=== PATIENT | female | born 2000 | race Caucasian/White ===

== ENCOUNTER 2019-04-22 12:53 | Emergency (ER) | payer BC ==
[2019-04-22 12:57] VITALS: BP 118/73; PULSE 90; RESP 18; TEMP 98.3
[2019-04-22] MEDS ORDERED: PENICILLIN G BENZATHINE 1,200,000 UNIT/2 ML SYRINGE IM STA (13:14)
--- NOTE | 2019-04-22 13:17 | ED ---
ENT HPI - General Chief complaint: ENT Stated complaint: SORE THROAT Time Seen by Provider: 04/22/19 13:01 Source: family, RN notes reviewed, old records reviewed Mode of arrival: ambulatory Limitations: no limitations - History of Present Illness Initial comments: Patient is a 19-year-old female Patient started with one week of sore throat. Patient reports that she's had symptoms since last Wednesday. She went to her primary care doctor's on Wednesday shaking and again negative rapid strep and negative mono test at that time. Was sent for home for monitoring. Patient states that today the pain got worse in her throat that she left work early went to [facility]. They sent her here for concerns for possible early peritonsillar abscess. Patient states that she had a fever last week but nothing at this time. She does report that she had a positive rapid strep test at [facility]. - Related Data Home Medications Medication Instructions Recorded Confirmed Ibuprofen [Motrin Ib] 400 mg PO Q6H PRN 04/22/19 04/22/19 Previous Rx's Medication Instructions Recorded Amoxicillin 500 mg PO Q8H #30 capsule 04/22/19 Allergies Allergy/AdvReac Type Severity Reaction Status Date / Time No Known Allergies Allergy Verified 04/22/19 13:05 Review of Systems ROS Statement: Those systems with pertinent positive or pertinent negative responses have been documented in the HPI. ROS Other: All systems not noted in ROS Statement are negative. Past Medical History Past Medical History: No Reported History History of Any Multi-Drug Resistant Organisms: None Reported Additional Past Surgical History / Comment(s): dental implant Past Psychological History: No Psychological Hx Reported Smoking Status: Never smoker Past Alcohol Use History: Occasional Past Drug Use History: None Reported General Exam - General Exam Comments Initial Comments: This is a 19-year-old female. Alert and oriented. No distress. Limitations: no limitations General appearance: alert Head exam: Present: atraumatic, normocephalic, normal inspection Eye exam: Present: normal appearance, PERRL, EOMI. Absent: scleral icterus, conjunctival injection, periorbital swelling ENT exam: Present: normal exam, mucous membranes moist. Absent: normal oropharynx (Erythematous oropharynx. No evidence of peritonsillar abscess. Patient is able to open and close jaw completely.) Neck exam: Present: normal inspection. Absent: tenderness, meningismus, lymphadenopathy Respiratory exam: Present: normal lung sounds bilaterally. Absent: respiratory distress, wheezes, rales, rhonchi, stridor Cardiovascular Exam: Present: regular rate, normal rhythm, normal heart sounds. Absent: systolic murmur, diastolic murmur, rubs, gallop, clicks GI/Abdominal exam: Present: soft Extremities exam: Present: normal inspection, full ROM, normal capillary refill. Absent: tenderness, pedal edema, joint swelling, calf tenderness Back exam: Present: normal inspection Neurological exam: Present: alert, oriented X3, CN II-XII intact Psychiatric exam: Present: normal affect, normal mood Skin exam: Present: warm, dry, intact, normal color. Absent: rash Course Vital Signs 04/22/19 12:54 Temperature 98.3 F Pulse Rate 90 Respiratory 18 Rate Blood Pressure 118/73 O2 Sat by Pulse 99 Oximetry Medical Decision Making - Medical Decision Making 19-year-old female presents today with 1 week of sore throat. She was sent from [facility] after positive rapid strep test. She was sent for concern for peritonsillar abscess. This time patient's vital signs are stable. On physical exam shows an erythematous oropharynx. No evidence of peritonsillar abscess. She is a difficulty swallowing or opening her jaw. Patient at this time has been given 1 dose IM Penicillin G. Discussed doing salt water rinses and close follow-up with her primary care physician. Discussed strict return parameters and monitoring for what would be concern for peritonsillar abscess. Patient agrees treatment plan will comply. Return parameters were discussed.. Disposition Clinical Impression: Strep pharyngitis Disposition: HOME SELF-CARE Condition: Good Instructions (If sedation given, give patient instructions): Strep Throat (ED) Additional Instructions: Follow-up with primary care physician in the next week. Patient should take antibiotics as prescribed. Return to emergency department if any alarming signs or symptoms occur. Prescriptions: Amoxicillin 500 mg PO Q8H #30 capsule Is patient prescribed a controlled substance at d/c from ED?: No Referrals: Nik Dash III, MD [Primary Care Provider] - 1-2 days Time of Disposition: 13:16
== END 2019-04-22 13:44 | disposition home or self-care (01) ==
LOC: EC 12:53
DX: J02.0 Streptococcal pharyngitis (principal); Z96.5 Presence of tooth-root and mandibular implants
CPT/HCPCS: 99283; 96372; J0561

== ENCOUNTER 2019-04-24 10:15 | Emergency (ER) | payer BC ==
[2019-04-24 10:35] VITALS: RESP 18
[2019-04-24] MEDS ORDERED: SODIUM CHLORIDE 0.9% 1,000 ML IV ONE (11:33)
[2019-04-24] MEDS ORDERED: SODIUM CHLORIDE 0.9% 500 ML 500 ML IV ONE (11:33)
[2019-04-24] MEDS ORDERED: DEXAMETHASONE SOD PHOSPHATE 10 MG/ML 1 ML VIAL IV STA (11:33)
[2019-04-24] MEDS ORDERED: KETOROLAC 30 MG/ML 1 ML VIAL IVP STA (11:33)
[2019-04-24] MEDS ORDERED: PENICILLIN G BENZATHINE 1,200,000 UNIT/2 ML SYRINGE IM STA (11:41)
--- NOTE | 2019-04-24 11:44 | ED ---
ENT HPI - General Chief complaint: ENT Stated complaint: strep throat Time Seen by Provider: 04/24/19 10:47 Source: patient, family Mode of arrival: ambulatory Limitations: no limitations - History of Present Illness Initial comments: 19-year-old female patient presents to the emergency department today for evaluation of sore throat, throat swelling, and painful swallowing. Patient states she was diagnosed with strep pharyngitis on 04/22/2019. Patient states that she did receive an IM dose of penicillin and was started on amoxicillin. Patient states she has been taking her antibiotics as directed but her symptoms seem to be worsening. Patient states she has had fevers. He states that her throat feels more swollen now and she is having a very difficult time swallowing. States that she has had decreased food and fluid intake related to this. States that she has been taking children's Tylenol and Motrin as needed for discomfort. She denies any other medical conditions. Denies cough, nasal congestion, or ear pain. Patient denies any recent rash, shortness breath, chest pain, abdominal pain, nausea, vomiting, diarrhea, constipation, back pain, numbness, tingling, dizziness, weakness, hematuria, dysuria, urinary urgency, urinary frequency, headache, visual changes, or any other complaints. - Related Data Home Medications Medication Instructions Recorded Confirmed Acetaminophen [Children's Tylenol] 480 mg PO Q6H PRN 04/24/19 04/24/19 Ibuprofen [Children's Motrin] 600 mg PO Q6H PRN 04/24/19 04/24/19 Previous Rx's Medication Instructions Recorded Amoxicillin 500 mg PO Q8H #30 capsule 04/22/19 Allergies Allergy/AdvReac Type Severity Reaction Status Date / Time No Known Allergies Allergy Verified 04/24/19 10:42 Review of Systems ROS Statement: Those systems with pertinent positive or pertinent negative responses have been documented in the HPI. ROS Other: All systems not noted in ROS Statement are negative. Past Medical History Past Medical History: No Reported History History of Any Multi-Drug Resistant Organisms: None Reported Additional Past Surgical History / Comment(s): dental implant Past Psychological History: No Psychological Hx Reported Smoking Status: Never smoker Past Alcohol Use History: Occasional Past Drug Use History: None Reported General Exam Limitations: no limitations General appearance: alert, in no apparent distress, other (Physical well- developed, well-nourished adult female patient in mild distress related to pain. Vital signs upon presentation are temperature 98.8F, pulse 1:30, respirations 18, blood pressure 127/80, pulse ox 100% on room air.) Eye exam: Present: normal appearance, PERRL, EOMI. Absent: scleral icterus, con junctival injection, periorbital swelling ENT exam: Present: mucous membranes moist. Absent: normal exam, normal oropharynx (Pharyngeal erythema, bilateral tonsillar hypertrophy, tonsillar exudate bilaterally. Tonsils are symmetrically enlarged.) Neck exam: Present: normal inspection, lymphadenopathy (Anterior cervical). Absent: tenderness, meningismus Respiratory exam: Present: normal lung sounds bilaterally. Absent: respiratory distress, wheezes, rales, rhonchi, stridor Cardiovascular Exam: Present: regular rate, normal rhythm, normal heart sounds. Absent: systolic murmur, diastolic murmur, rubs, gallop, clicks GI/Abdominal exam: Present: soft, normal bowel sounds. Absent: distended, tenderness, guarding, rebound, rigid Neurological exam: Present: alert, oriented X3, CN II-XII intact Psychiatric exam: Present: normal affect, normal mood Skin exam: Present: warm, dry, intact, normal color. Absent: rash Course Vital Signs 04/24/19 04/24/19 10:28 14:00 Temperature 98.8 F 99 F Pulse Rate 130 H 80 Respiratory 18 18 Rate Blood Pressure 127/80 110/71 O2 Sat by Pulse 100 99 Oximetry Medical Decision Making - Medical Decision Making 19-year-old female patient presented to the emergency department today for evaluation of throat swelling, pain, and difficulty swallowing. Physical examination did reveal a lateral tonsillar hypertrophy, erythema, and exudate. She is afebrile currently. Breathing without difficulty. She was given IV fluids, IV Decadron and Toradol. She is given additional dose of penicillin. Upon reevaluation she does report improvement of symptoms. She is clearly taking amoxicillin, she is urged to continue taking this. She is instructed to continue ibuprofen every 6-8 hours as needed for discomfort and swelling. She is instructed to follow-up with her primary care physician for recheck in 1-2 days. Return parameters discussed in detail. She verbalizes understanding and agrees with this plan. Disposition Clinical Impression: Strep throat Disposition: HOME SELF-CARE Condition: Good Instructions (If sedation given, give patient instructions): Strep Throat (ED) Additional Instructions: Continue ibuprofen for pain control. Complete antibiotic prescription as directed. Increase fluids. Follow-up with your primary care physician for recheck in 1-2 days. Return to the emergency department immediately for any new, worsening, or concerning symptoms. Is patient prescribed a controlled substance at d/c from ED?: No Referrals: Nik Dash III, MD [Primary Care Provider] - 1-2 days Time of Disposition: 13:52
[2019-04-24 14:06] VITALS: BP 110/71; PULSE 80; TEMP 99
== END 2019-04-24 14:00 | disposition home or self-care (01) ==
LOC: EC 10:15
DX: J02.0 Streptococcal pharyngitis (principal)
CPT/HCPCS: 99282; 96374; 96375; 96361 ×2; 96372; J0561; J1100; J1885

== ENCOUNTER → 2021-06-09 | Outpatient (CLI) | payer BC ==
--- NOTE | 2021-06-09 21:53 | CT ---
EXAMINATION TYPE: CT soft tissue neck w con DATE OF EXAM: 06/09/2021 COMPARISON: None HISTORY: Localized enlarged lymph nodes CT DLP: 275.2 mGycm CONTRAST: Patient injected with 100 mL of Isovue 300. TECHNIQUE: Axial images at 3 mm thick sections. Reconstructed images in the coronal plane and sagitt al plane are reviewed. FINDINGS: Limited CT sections are obtained the lung apices. The lung apices appear clear. May be a r ight suprahilar lymph node measuring 1.[address] chest for additional evaluation. Series [address] neck: The torus tubarius and fossa of Rosenmuller are normal. Charger spaces are normal. Para nasal sinuses and mastoid air cells are clear. Prevertebral space appears unremarkable. Parotid glands appear normal and symmetrical. Submandibular glands, are normal. Parapharyngeal spac es are normal. No suspicious adenopathy is evident. Submental spaces a few small lymph nodes. No enl arged lymphadenopathy is evident. The hypopharynx appears within normal limits. Vocal cord level appear symmetrical. Multiple small hypodensities are scattered within the thyroid may be tiny cysts. This could be evalua chari with ultrasound. Osseous structures are normal. Disc heights are preserved At the level marked by the BB on the right neck no suspicious underlying mass is evident. This is mar ked at the level of the right submandibular gland which appears symmetrical with the contralateral si de. IMPRESSIONS: 1. No suspicious abnormality at the level marked by the BB. 2. At the lower edge of the film superior mediastinal and may be a 1 cm lymph node at the right supra hilar region. CT chest could be performed for additional evaluation. No additional suspicious adenopa thy is evident.
== END | disposition home or self-care (01) ==
LOC: RADCTMAIN 07:53
PROVIDERS: ATTEND Family Medicine
DX: R59.0 Localized enlarged lymph nodes (principal)
CPT/HCPCS: 70491; Q9967

== ENCOUNTER 2024-11-30 18:52 | Outpatient (CLI) | payer BC ==
[2024-11-30] MEDS: ACETAMINOPHEN TAB 500 MG TAB PO STA (19:29)
[2024-11-30 20:21] LABS: Influenza A Detected (Not Detectd); Influenza B Not Detected (Not Detectd); RSV Not Detected (Not Detectd)
[2024-11-30 21:43] VITALS: BP 123/72; PULSE 108; RESP 16; TEMP 100.2
--- NOTE | 2024-12-08 16:00 | P.MSEPDOC ---
Presenting Problems - Arrival Data Date of Arrival on Unit: 11/30/24 Time of Arrival on Unit: 18:52 Mode of Transport: Ambulatory - Complaint OB-Reason for Admission/Chief Complaint: Decreased Movement, Other Comment: fever,cough,congestion Medical History - Information : 1 Para: 0 Term: 0 : 0 Abortions: Spontaneous or Elective: 0 Number of Living Children: 0 - Gestational Age Gestational Age by YVONNE (wks/days): 33 Weeks and 5 Days Review of Systems - Review of Systems Constitutional: Fever Breast: No problems ENT: Nasal congestion Cardiovascular: No problems Respiratory: No problems Gastrointestinal: No problems Genitourinary: No problems Musculoskeletal: No problems Neurological: Dizziness Skin: No problems Vital Signs - Temperature Temperature: 100.2 F Temperature Source: Temporal Artery Scan - Pulse Right Sitting Pulse Rate: 108 Pulse Assessment Method: Automatic Cuff - Respirations Respiratory Rate: 16 Oxygen Delivery Method: Room Air O2 Sat by Pulse Oximetry: 98 - Blood Pressure Right Arm Sitting Blood Pressure: 123/72 Blood Pressure Mean: 89 Blood Pressure Source: Automatic Cuff Medical Screen Scoring - Cervical Exam Membranes: Intact - Assessment - Baby A Baseline FHR: 145 Heart Rate - NICHD Category: Category I (Normal) NST: Reactive Physician Notification - Physician Notified Physician Notified Date: 11/30/24 Physician Notified Time: 19:15 Physician: Honey Clarke Order Received: Yes - Notification Comment Comment: Cephid 4 plex nasal swab collected, Tylenol given, NST reactive pt feeling movement now. Maternal Triage Index - Maternal Triage Index Presenting for scheduled procedure w/no complaint: No - Stat/Priority 1 Stat Priority 1: No - Urgent/Priority 2 Urgent Priority 2: No - Prompt/Priority 3 Prompt Priority 3: No - Non-Urgent/Priority 4 Non-Urgent Priority 4: Yes Criteria Met for Priority 4: flu like symptoms,baby not moving as much - Scheduled/Requesting Priority 5 Scheduled/Requesting Priority 5: No Disposition - Disposition OB Disposition: Discharge to home, Written follow up instructions reviewed Discharge Date: 11/30/24 Discharge Time: 19:45 I agree with the RN Medical Screening Exam: Yes Physician's MSE Comment: I have neither seen nor examined the patient Case reviewed; plan agreed upon as documented in EMR&OBIX.: Yes Diagnosis: DECREASED MOVEMENTS, THIRD TRIMESTER, FETUS 1
== END 2024-11-30 19:45 | disposition home or self-care (01) ==
LOC: FBPOP 18:52
PROVIDERS: ATTEND Obstetrics & Gynecology
DX: O36.8131 Decreased fetal movements, third trimester, fetus 1 (principal); Z3A.33 33 weeks gestation of pregnancy
CPT/HCPCS: 59025; 87636; 99213

== ENCOUNTER 2025-01-06 16:27 | Outpatient (CLI) | payer BC ==
[2025-01-06 16:52] VITALS: BP 136/86; PULSE 72; RESP 16; TEMP 97.3
--- NOTE | 2025-02-02 11:05 | P.MSEPDOC ---
Presenting Problems - Arrival Data Date of Arrival on Unit: 01/06/25 Time of Arrival on Unit: 16:23 Mode of Transport: Ambulatory - Complaint OB-Reason for Admission/Chief Complaint: Decreased Movement Comment: Pt is a with YVONNE 01/13/25 here at 39.0 weeks of gestation with c/o decreased FM. Pt reports that she last feel the baby move around 1230 this afternoon. Pt reports that she did have a placenta previa but it has resolved, goldy further complications with the . Medical History - Information : 1 Para: 0 Term: 0 : 0 Abortions: Spontaneous or Elective: 0 Number of Living Children: 0 - Gestational Age Gestational Age by YVONNE (wks/days): 39 Weeks and 0 Days Review of Systems - Review of Systems Constitutional: No problems Breast: No problems ENT: No problems Cardiovascular: No problems Respiratory: No problems Gastrointestinal: No problems Genitourinary: No problems Musculoskeletal: No problems Neurological: No problems Skin: No problems Vital Signs - Temperature Temperature: 97.3 F Temperature Source: Temporal Artery Scan - Pulse Right Sitting Pulse Rate: 72 Pulse Assessment Method: Automatic Cuff - Respirations Respiratory Rate: 16 Oxygen Delivery Method: Room Air - Blood Pressure Right Arm Sitting Blood Pressure: 136/86 Blood Pressure Mean: 102 Blood Pressure Source: Automatic Cuff Medical Screen Scoring - Cervical Exam Membranes: Intact - Uterine Contractions Intensity: Mild Resting: Soft to palpation - Assessment - Baby A Baseline FHR: 150 Heart Rate - NICHD Category: Category I (Normal) NST: Reactive Physician Notification - Physician Notified Physician Notified Date: 01/06/25 Physician Notified Time: 16:52 Physician: Javier Ridley New Order Received: Yes - Notification Comment Comment: Dr. Ridley notified of pts arrival to triage with c/o decreased FM. Maternal hx and current status reviewed, FHTs and UCs reported on, reacive NST. Orders to D/C pt home, orders read back and confirmed. Maternal Triage Index - Maternal Triage Index Presenting for scheduled procedure w/no complaint: No - Stat/Priority 1 Stat Priority 1: No - Urgent/Priority 2 Urgent Priority 2: Yes Provider Notified: Javier Ridley Provider Notified Time: 16:52 Criteria Met for Priority 2: Pt is a with YVONNE 01/13/25 here at 39.0 weeks of gestation with c/o decreased FM. Pt reports that she last feel the baby move around 1230 this afternoon. Pt reports that she did have a placenta previa but it has resolved, denies further complications with the . Disposition - Disposition OB Disposition: Discharge to home Discharge Date: 01/06/25 Discharge Time: 17:02 I agree with the RN Medical Screening Exam: Yes Physician's MSE Comment: I have neither seen nor examined the patient. Case reviewed; plan agreed upon as documented in EMR&OBIX.: Yes Diagnosis: RELATED CONDITIONS, UNSPECIFIED, THIRD TRIMESTER
== END 2025-01-06 17:02 | disposition home or self-care (01) ==
LOC: FBPOP 16:27
PROVIDERS: ATTEND Obstetrics & Gynecology
DX: O23.93 Unspecified genitourinary tract infection in pregnancy, third trimester (principal); O36.8130 Decreased fetal movements, third trimester, not applicable or unspecified; Z3A.39 39 weeks gestation of pregnancy
CPT/HCPCS: 59025; 99213

== ENCOUNTER 2025-01-07 05:03 | Inpatient (IN) | payer BC ==
[2025-01-07] MEDS ORDERED: miSOPROStoL 200 MCG TAB PO PRN (05:31)
[2025-01-07] MEDS ORDERED: TRANEXAMIC 1,000 MG/100ML-NACL 1,000 MG in EMPTY BAG 1 BAG IV PRN (05:31)
[2025-01-07] MEDS ORDERED: miSOPROStoL 200 MCG TAB RECTAL PRN (05:31)
[2025-01-07] MEDS ORDERED: METHYLERGONOVINE 0.2 MG/ML 1 ML AMP IM PRN (05:31)
[2025-01-07] MEDS ORDERED: CARBOPROST TROMETHAMINE 250 MCG/ML 1 ML AMP IM PRN (05:31)
[2025-01-07] MEDS ORDERED: OXYTOCIN 10 UNIT/ML 1 ML VIAL IM PRN (05:31)
[2025-01-07] MEDS ORDERED: TERBUTALINE 1 MG/ML VIAL SQ PRN (05:31)
[2025-01-07 05:44] LABS: Basophils # (A) 0.1 k/uL (0-0.2); Basophils % (A) 1 %; Eosinophils # (A) 0.1 k/uL (0-0.7); Eosinophils % (A) 1 %; HCT 38.5 % (34.0-46.0); HGB 12.2 gm/dL (11.4-16.0); Lymphocytes # (A) 2.7 k/uL (1.0-4.8); Lymphocytes % (A) 17 %; MCH 28.2 pg (25.0-35.0); MCHC 31.7 g/dL (31.0-37.0); MCV 89.1 fL (80.0-100.0); Monocytes # (A) 1.3 k/uL (0-1.0); Monocytes % (A) 9 %; Neutrophils # (A) 10.9 k/uL (1.3-7.7); Neutrophils % (A) 72 %; Platelet Count 275 k/uL (150-450); RBC 4.32 m/uL (3.80-5.40); RDW 14.2 % (11.5-15.5); WBC 15.2 k/uL (3.8-10.6)
[2025-01-07] MEDS ORDERED: OXYTOCIN 30 UNITS/500 ML NS 30 UNIT in SALINE 1 500ML.BAG IV SCH (05:45)
[2025-01-07] MEDS: LACTATED RINGERS 1,000 ML IV SCH (05:47)
[2025-01-07] MEDS ORDERED: ROPIVACAINE 5 MG/ML 30 ML VIAL ONE (06:42)
[2025-01-07] MEDS ORDERED: SODIUM CHLORIDE 0.9% 250 ML BAG ONE (06:42)
[2025-01-07] MEDS ORDERED: fentaNYL (PF) 50 MCG/ML 5 ML AMP ONE (06:42)
[2025-01-07] MEDS: CALCIUM CARBONATE 500 MG CHEWABLE PO PRN (07:23)
[2025-01-07] MEDS ORDERED: BUTORPHANOL 1 MG/ML 1 ML VIAL IV PRN (08:34)
--- NOTE | 2025-01-07 08:39 | P.HPOB ---
History of Present Illness H&P Date: 01/07/25 Chief Complaint: 39 and 1 sevenths weeks, spontaneous rupture of membranes, labor The patient is a 24-year-old 1 para 0 admitted at 39 and 1 sevenths weeks as established by last menstrual period and confirmed by 8-week ultrasound. She is admitted with documented spontaneous rupture of membranes in labor with all signs reassuring. Her has been uncomplicated and group B strep status is negative. On labor and delivery, all signs are reassuring with a category 1 heart rate tracing. Obstetrical history: 1 para 0 with current statistics listed in history of present illness. EDC of 01/13/2025 was established by last menstrual period and confirmed by 8-week ultrasound. Laboratory workup demonstrates a blood type of O+ with a negative antibody screen. Rubella status is immune. The remainder of the laboratory workup is within normal limits. 1 hour Glucola was normal and group B strep status is negative. Gynecologic history: Unremarkable with no history of any infections to include STDs. Review of Systems Review of systems is confined to history of present illness. Past Medical History Past Medical History: No Reported History History of Any Multi-Drug Resistant Organisms: None Reported Additional Past Surgical History / Comment(s): dental implant Past Anesthesia/Blood Transfusion Reactions: No Reported Reaction Past Psychological History: No Psychological Hx Reported Smoking Status: Never smoker Past Alcohol Use History: Occasional Past Drug Use History: None Reported - Past Family History Mother Family Medical History: No Reported History Medications and Allergies Home Medications Medication Instructions Recorded Confirmed Type Vit No.179/Iron/Folic 1 each PO DAILY 11/30/24 01/07/25 History [ Tablet] Allergies Allergy/AdvReac Type Severity Reaction Status Date / Time No Known Allergies Allergy Verified 11/30/24 19:06 Exam Vital Signs Temp Pulse Resp BP Pulse Ox 01/07/25 05:44 97.9 F 91 16 149/94 99 01/07/25 05:36 97.9 F 91 16 149/94 99 Intake and Output 01/06/25 01/07/25 01/07/25 22:59 06:59 14:59 Other: # Voids 2 Weight 90.356 kg General, this is a well-developed, well-nourished white female in no acute distress. Her heart has a regular rhythm and rate without murmur. Her lungs are clear to auscultation bilateral in all garg. Her abdomen is gravid, nondistended, has normal active bowel sounds, soft, nontender, without any palpable masses aside from the uterine fundus. Her extremities are without any cyanosis, clubbing, or significant edema and are nontender to palpation bilaterally. Digital cervical examination demonstrates her cervix to be 5+ centimeters dilated, 60% effaced, with the vertex and presentation at -2 station. Artificial rupture of membranes is carried out demonstrating clear fluid. Results Result Diagrams: 01/07/25 05:32 Abnormal Lab Results - Last 24 Hours (Table) 01/07/25 Range/Units 05:32 WBC 15.2 H (3.8-10.6) k/uL Neutrophils # 10.9 H (1.3-7.7) k/uL Monocytes # 1.3 H (0-1.0) k/uL Assessment and Plan (1) Active labor at term Current Visit: Yes Status: Acute Code(s): [id number] - SNOMED Code(s): 3 1256998 Plan: Patient is admitted for active management of labor. She will have close maternal and surveillance and expectant management will be practiced. She has undergone artificial rupture of membranes demonstrating clear fluid. She is a good candidate for epidural or IV analgesia, should she so choose. She is currently choosing none intervention at this time.
[2025-01-07] MEDS: FAMOTIDINE 20 MG/2 ML VIAL IV STA (09:16)
[2025-01-07] MEDS: LIDOCAINE 0.5% (PF) 5 MG/ML (50 ML SDV) SQ PRN (13:03)
[2025-01-07] MEDS: OXYTOCIN 30 UNITS/500 ML NS 30 UNIT in SALINE 1 500ML.BAG IV SCH (13:03)
[2025-01-07] MEDS: BENZOCAINE/MENTHOL SPRAY 1 GM/SPRAY AEROSOL TOPICAL PRN (13:15)
[2025-01-07] MEDS ORDERED: diphenhydrAMINE 25 MG CAP PO PRN (13:34)
[2025-01-07] MEDS ORDERED: HYDROCORTISONE 2.5% RECTAL CREAM 30 GM TUBE RECTAL PRN (13:34)
[2025-01-07] MEDS ORDERED: SIMETHICONE 80 MG CHEWABLE PO PRN (13:34)
[2025-01-07] MEDS ORDERED: LANOLIN CREAM 1 GM TUBE TOPICAL PRN (13:34)
[2025-01-07] MEDS ORDERED: ZOLPIDEM 5 MG TAB PO PRN (13:34)
[2025-01-07] MEDS ORDERED: diphenhydrAMINE 50 MG/ML 1 ML VIAL IVP PRN ×2 (13:34)
[2025-01-07] MEDS ORDERED: diphenhydrAMINE 50 MG CAP PO PRN (13:34)
[2025-01-07] MEDS ORDERED: ACETAMINOPHEN TAB 500 MG TAB PO PRN (13:34)
--- NOTE | 2025-01-07 13:38 | P.PROBDLV ---
Vaginal Delivery Note - . Vaginal Delivery Note: The patient is a 24-year-old 1 para 0 admitted at 39 and 1 sevenths weeks as established by good dating parameters. She is admitted in active labor with all signs reassuring. Her has been entirely uncomplicated and group B strep status is negative. On labor and delivery, she had an epidural catheter placed for analgesia and then underwent artificial rupture of membranes for clear fluid. She made steady progress through the active phase of labor to complete and then pushed over the course of approximately 30 to 35 minutes to a normal spontaneous vaginal delivery of a viable 7 pound 13 ounce baby boy with Apgars of 9 at 1 minute and 9 at 5 minutes delivered in the right occiput anterior position. There was a nuchal cord x 1 reduced following delivery of the . The placenta was delivered spontaneously, intact, and grossly normal with a grossly normal three-vessel cord inserted approximately 4 cm from the margin of the placental disc. A second-degree midline laceration was noted and was repaired in standard fashion using 3-0 chromic catgut. Estimated blood loss for the case was approximately 250 mL. There were no complications. All sponge, instrument, and needle counts were correct. Both mother and infant are resting comfortably in recovery.
[2025-01-07 14:51] VITALS: RESP 16
[2025-01-07] MEDS: SENNOSIDES-DOCUSATE SODIUM 1 EACH TAB PO SCH (19:43)
[2025-01-08 06:48] LABS: Basophils # (A) 0.1 k/uL (0-0.2); Basophils % (A) 0 %; Eosinophils # (A) 0.1 k/uL (0-0.7); Eosinophils % (A) 0 %; HCT 31.7 % (34.0-46.0); Hypochromasia Slight; Lymphocytes # (A) 3.6 k/uL (1.0-4.8); Lymphocytes % (A) 17 %; MCH 28.1 pg (25.0-35.0); MCHC 31.2 g/dL (31.0-37.0); MCV 90.1 fL (80.0-100.0); Mean Platelet Volume 9.8; Monocytes # (A) 1.4 k/uL (0-1.0); Monocytes % (A) 6 %; Neutrophils % (A) 75 %; Platelet Count 209 k/uL (150-450); RBC 3.52 m/uL (3.80-5.40); RDW 14.3 % (11.5-15.5); WBC 21.4 k/uL (3.8-10.6)
[2025-01-08 06:59] LABS: HGB 9.9 gm/dL (11.4-16.0)
[2025-01-08] MEDS: IBUPROFEN 800 MG TAB PO PRN (09:02)
[2025-01-08 12:16] VITALS: BP 125/91; PULSE 105; TEMP 97.6
--- NOTE | 2025-01-08 13:29 | P.DS ---
Providers Date of admission: 01/07/25 05:25 Expected date of discharge: 01/08/25 Attending physician: Stormy Lewis Primary care physician: Stated None - Discharge Diagnosis(es) (1) Active labor at term Current Visit: Yes Status: Acute (2) Normal spontaneous vaginal delivery Current Visit: Yes Status: Acute (3) Nuchal cord, delivered, current hospitalization Current Visit: Yes Status: Acute (4) Perineal laceration during delivery Current Visit: Yes Status: Acute (5) Spontaneous rupture of amniotic membranes Current Visit: No Status: Acute Hospital Course: 24-year-old 1 para 0 that presented to labor and delivery at 39+ weeks in active labor on 01/07. Patient been receiving routine care which been essentially complicated. For full details in this patient please see the dictated history and physical. Patient underwent a normal spontaneous vaginal delivery of a viable male . 7 pounds 13 ounces, second-degree laceration was appreciated after delivery and repaired in the usual fashion. Patient's course has been uneventful. On this day #1 she is ambulating and voiding without difficulty. She is tolerating a regular diet without nausea or vomiting. She states her pain is well-controlled. She would like discharge home at 24 hours. Patient Condition at Discharge: Good Plan - Discharge Summary New Discharge Prescriptions: No Action Vit No.179/Iron/Folic [ Tablet] 1 each PO DAILY Discharge Medication List Vit No.179/Iron/Folic [ Tablet] 1 each PO DAILY 11/30/24 [History] Follow up Appointment(s)/Referral(s): Stormy Lewis DO [Doctor of Osteopathic Medicine] - 02/19/25 1:00 pm Patient Instructions/Handouts: Depression (DC), Vaginal Delivery (DC) Activity/Diet/Wound Care/Special Instructions: [id number] ibuprofen 600 mg or 3 tablets every 6 hours as needed for pain. Routine check in 6 weeks. No tub baths or intercourse until 6 weeks . Should she have any concerns prior to her check she is urged to call the office and be seen prior. Discharge Disposition: HOME SELF-CARE
== END 2025-01-08 16:45 | disposition home or self-care (01) | DRG 807 ==
LOC: FBPOP 05:03 → 4FBP 05:25
PROVIDERS: ADMIT Obstetrics & Gynecology; ATTEND Obstetrics & Gynecology Obstetrics
PROC: 10907ZC Drainage of Amniotic Fluid, Therapeutic from Products of Conception, Via Natural or Artificial Opening (ICD-10-PCS; principal; 2025-01-07)
PROC: 10E0XZZ Delivery of Products of Conception, External Approach (ICD-10-PCS; principal; 2025-01-07)
PROC: 0KQM0ZZ Repair Perineum Muscle, Open Approach (ICD-10-PCS; principal; 2025-01-07)
DX: O69.81X0 Labor and delivery complicated by cord around neck, without compression, not applicable or unspecified (principal); Z37.0 Single live birth; O70.1 Second degree perineal laceration during delivery; Z3A.39 39 weeks gestation of pregnancy
CPT/HCPCS: 85025; 86850; 86900; 86901; 99213